=== PATIENT | female | born 2005 | race Caucasian/White ===

== ENCOUNTER 2025-04-16 10:43 | Outpatient (CLI) | payer OTHER, SELFPAY ==
[2025-04-16 12:07] LABS: Albumin* 4.2 g/dL (3.3-5.0)
[2025-04-16 12:10] LABS: Alanine Aminotransferase* 19 U/L (4-35); Alkaline Phosphatase* 60 U/L (40-150); Aspartate Amino Transferase* 28 U/L (12-35); Bilirubin Direct* 0.3 mg/dL (0.0-0.5); Bilirubin Total* 0.7 mg/dL (0.1-1.5); Cholesterol* 172 mg/dL (90-199); Total Protein* 6.7 g/dL (6.0-8.3); Triglycerides* 69 mg/dL (40-149)
[2025-04-16 12:11] LABS: HDL Cholesterol* 46 mg/dL (>=50)
[2025-04-16 12:12] LABS: HCG Qualitative Serum* Negative (Negative)
== END 2025-04-16 10:44 | disposition home or self-care (01) ==
LOC: NPINS 10:47
PROVIDERS: Visit Provider Physician Assistant Medical
DX: L70.0 Acne vulgaris (principal); L01.01 Non-bullous impetigo; R04.0 Epistaxis; L85.3 Xerosis cutis; Z79.899 Other long term (current) drug therapy
CPT/HCPCS: 80061; 80076; 84703